=== PATIENT | female | born 1985 | race Hispanic/Latino ===

== ENCOUNTER 2018-03-24 10:31 | Emergency (ER) | payer BC, OTHER ==
--- NOTE | 2018-03-24 12:09 | EKG ---
Test Date: 2018-03-24 Test Time: 10:44:38 Personal Support Worker: STEVEN MEASUREMENT RESULTS: Intervals: Rate: 67 SD: 192 QRSD: 88 QT: 380 QTc: 401 [place]: P: 51 SD: 192 QRS: 42 T: 29 INTERPRETIVE STATEMENTS: Normal sinus rhythm Normal ECG No previous ECG available for comparison Electronically Signed On 03-24-18 12:08:18 CDT by Ronald Romo
--- NOTE | 2018-03-24 13:04 | RAD REPORT ---
EXAM DESCRIPTION: RAD - Chest Pa And Lat (2 Views) - 03/24/2018 12:55 pm CLINICAL HISTORY: Chest pain COMPARISON: None. TECHNIQUE: PA and lateral views of the chest were obtained. FINDINGS: The lungs are clear. Heart size is normal and central vasculature is within normal limit s. No pleural effusion or pneumothorax seen. No acute bony finding noted. No aortic abnormality. IMPRESSION: No acute cardiopulmonary process.
--- NOTE | 2018-03-24 13:22 | ER ---
Nurse's Notes [facility] Name: Sabina Beaulieu Age: 33 yrs Sex: Female : 1985 Arrival Date: 03/24/2018 Time: 10:35 Bed 18 Private MD: None, None Diagnosis: Acute bronchitis Presentation: 03/24 10:39 Presenting complaint: Patient states: PAIN WITH RESP AND COUGH SINCE 0900. Transition aa5 of care: patient was not received from another setting of care. Onset of symptoms was March 24, 2018 at 09:00. Risk Assessment: Do you want to hurt yourself or someone else? Patient reports no desire to harm self or others. Initial Sepsis Screen: Does the patient meet any 2 criteria? No. Patient's initial sepsis screen is negative. Does the patient have a suspected source of infection? No. Patient's initial sepsis screen is negative. Care prior to arrival: None. 10:39 Method Of Arrival: Ambulatory aa5 10:39 Acuity: JUNIOR 3 aa5 Triage Assessment: 10:40 General: Appears in no apparent distress. comfortable, Behavior is cooperative, aa5 appropriate for age, anxious. Pain: Complains of pain in chest. Cardiovascular: Rhythm is sinus rhythm. 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 - Social history:: Smoking status: Patient/guardian denies using tobacco. - Ebola Screening: : Patient negative for fever greater than or equal to 101.5 degrees Fahrenheit, and additional compatible Ebola Virus Disease symptoms Patient denies exposure to infectious person Patient denies travel to an Ebola-affected area in the 21 days before illness onset No symptoms or risks identified at this time. Screenin:47 Abuse screen: Denies threats or abuse. Denies injuries from another. Nutritional ch screening: No deficits noted. Tuberculosis screening: No symptoms or risk factors identified. Fall Risk None identified. Assessment: 11:47 Reassessment: Patient appears in no apparent distress at this time. Patient and/or ch family updated on plan of care and expected duration. Pain level reassessed. Patient is alert, oriented x 3, equal unlabored respirations, skin warm/dry/pink. General: Appears in no apparent distress. comfortable, Behavior is calm, cooperative, appropriate for age. Pain: Complains of pain in back and chest Pain does not radiate. Pain currently is 2 out of 10 on a pain scale. Pain began suddenly. Neuro: Level of Consciousness is awake, alert, obeys commands, Oriented to person, place, time, situation, Welt Edge Rounder are equal bilaterally. Cardiovascular: Heart tones S1 S2 present Capillary refill < 3 seconds in bilateral fingers toes. Respiratory: Reports shortness of breath cough that is pt states it feels like she cannot take a deep breath in. Airway is patent Respiratory effort is even, unlabored, Breath sounds are clear bilaterally. GI: No signs and/or symptoms were reported involving the gastrointestinal system. 13:31 Reassessment: Patient appears in no apparent distress at this time. Patient and/or ch family updated on plan of care and expected duration. Pain level reassessed. Patient is alert, oriented x 3, equal unlabored respirations, skin warm/dry/pink. Patient states feeling better. Patient states symptoms have improved. 13:37 Reassessment: awaiting erp to review results and dx with pt and family. ch 14:23 Reassessment: Patient appears in no apparent distress at this time. Patient and/or ch family updated on plan of care and expected duration. Pain level reassessed. Patient is alert, oriented x 3, equal unlabored respirations, skin warm/dry/pink. Patient states feeling better. Patient states symptoms have improved. Vital Signs: 10:41 BP 128 / 87; Pulse 71; Resp 16; Temp 98.4; Pulse Ox 99% ; Weight 77.11 kg; Height 5 ft. aa5 4 in. (162.56 cm); 13:31 BP 132 / 71; Pulse 65; Resp 12; Temp 98.5; Pulse Ox 99% on R/A; Pain 2/10; ch 14:23 BP 109 / 86; Pulse 88; Resp 14; Temp 98.6; Pulse Ox 99% on R/A; Pain 0/10; ch 10:41 Body Mass Index 29.18 (77.11 kg, 162.56 cm) aa5 ED Course: 10:35 Patient arrived in ED. mr 10:36 None, None is Private Physician. mr 10:40 Triage completed. aa5 10:41 Arm band placed on left wrist. aa5 10:44 Doug Rincon MD is Attending Physician. gs 10:48 Leslie Francois, RN is Primary Nurse. ch 10:48 EKG done, by blending technician. reviewed by Doug Rincon MD. at1 11:30 No apparent distress. Resting quietly. ch 11:30 No provider procedures requiring assistance completed. Initial lab(s) drawn, by wy, sent to lab. 11:36 D-Dimer Sent. aa5 11:47 Patient has correct armband on for positive identification. Bed in low position. Call light in reach. Side rails up X 1. Pulse ox on. NIBP on. 12:48 Patient moved to radiology via wheelchair. jb2 12:53 XRAY Chest Pa And Lat (2 Views) In Process Unspecified. EDMS 12:53 X-ray completed. Patient tolerated procedure well. Patient moved back from radiology. jb2 13:21 None, None is Referral Physician. gs 14:23 Warm blanket given. ch 14:23 Patient did not have IV access during this emergency room visit. Patient maintains SpO2 ch saturation greater than 95% on room air. Administered Medications: 13:50 Drug: Albuterol 2.5 mg Route: Inhalation; ch 14:25 Follow up: Response: No adverse reaction; Marked relief of symptoms ch 13:50 Drug: TORadol 30 mg Route: IM; Site: right gluteus; ch 14:24 Follow up: Response: No adverse reaction; Marked relief of symptoms Outcome: 13:22 Discharge ordered by MD. gs 14:20 Discharge ordered by MD. gs 14:23 Discharged to home ambulatory, with family. ch 14:23 Condition: improved 14:23 Discharge instructions given to patient, family, Instructed on discharge instructions, follow up and referral plans. medication usage, Demonstrated understanding of instructions, follow-up care, medications, Prescriptions given X 2. 14:25 Patient left the ED. Signatures: Dispatcher [employer] EDKY Leslie Francois, ANÍBAL SPANGLER ch Webber Grover Diaz jb2 Milvia Carlos RN RN aa5 Margarita Moreno, plaster form maker EKG Tat1 Doug Rincon MD MD
--- NOTE | 2018-03-24 13:22 | EDPHYS ---
Physician Documentation [facility] Name: Sabina Beaulieu Age: 33 yrs Sex: Female : 1985 Arrival Date: 03/24/2018 Time: 10:35 Bed 18 Private MD: None, None ED Physician Doug Rincon HPI: 03/24 13:18 This 33 yrs old Female presents to ER via Ambulatory with complaints of Chest gs Pain. 13:18 The patient or guardian reports chest pain that is located primarily in the anterior gs chest wall. The pain does not radiate. Associated signs and symptoms: Pertinent positives: cough, Pertinent negatives: abdominal pain, diaphoresis, syncope, vomiting. The chest pain is described as sharp. Duration: The patient or guardian reports multiple episodes, that are intermittent. Modifying factors: the symptoms are aggravated by deep breath. Severity of pain: At its worst the pain was moderate in the emergency department the pain is unchanged. The patient has experienced similar episodes in the past, a few times. 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 - Social history:: Smoking status: Patient/guardian denies using tobacco. - Ebola Screening: : Patient negative for fever greater than or equal to 101.5 degrees Fahrenheit, and additional compatible Ebola Virus Disease symptoms Patient denies exposure to infectious person Patient denies travel to an Ebola-affected area in the 21 days before illness onset No symptoms or risks identified at this time. ROS: 13:18 All other systems are negative. gs Exam: 13:18 Head/Face: Normocephalic, atraumatic. Eyes: Pupils equal round and reactive to light, gs extra-ocular motions intact. Lids and lashes normal. Conjunctiva and sclera are non-icteric and not injected. Cornea within normal limits. Periorbital areas with no swelling, redness, or edema. ENT: Nares patent. No nasal discharge, no septal abnormalities noted. Tympanic membranes are normal and external auditory canals are clear. Oropharynx with no redness, swelling, or masses, exudates, or evidence of obstruction, uvula midline. Mucous membranes moist. Neck: Trachea midline, no thyromegaly or masses palpated, and no cervical lymphadenopathy. Supple, full range of motion without nuchal rigidity, or vertebral point tenderness. No Meningismus. Chest/axilla: Normal chest wall appearance and motion. Nontender with no deformity. No lesions are appreciated. Cardiovascular: Regular rate and rhythm with a normal S1 and S2. No gallops, murmurs, or rubs. Normal PMI, no JVD. No pulse deficits. Abdomen/GI: Soft, non-tender, with normal bowel sounds. No distension or tympany. No guarding or rebound. No evidence of tenderness throughout. Back: No spinal tenderness. No costovertebral tenderness. Full range of motion. Skin: Warm, dry with normal turgor. Normal color with no rashes, no lesions, and no evidence of cellulitis. MS/ Extremity: Pulses equal, no cyanosis. Neurovascular intact. Full, normal range of motion. Neuro: Awake and alert, GCS 15, oriented to person, place, time, and situation. Cranial nerves II-XII grossly intact. Motor strength 5/5 in all extremities. Sensory grossly intact. Cerebellar exam normal. Normal gait. 13:18 Constitutional: The patient appears alert, awake. 13:18 ECG was reviewed by the Attending Physician. 13:18 Respiratory: the patient does not display signs of respiratory distress, Respirations: normal, Breath sounds: rhonchi, that are mild, are scattered. Vital Signs: 10:41 BP 128 / 87; Pulse 71; Resp 16; Temp 98.4; Pulse Ox 99% ; Weight 77.11 kg; Height 5 ft. aa5 4 in. (162.56 cm); 13:31 BP 132 / 71; Pulse 65; Resp 12; Temp 98.5; Pulse Ox 99% on R/A; Pain 2/10; ch 14:23 BP 109 / 86; Pulse 88; Resp 14; Temp 98.6; Pulse Ox 99% on R/A; Pain 0/10; ch 10:41 Body Mass Index 29.18 (77.11 kg, 162.56 cm) aa5 MDM: 11:21 Patient medically screened. 13:18 Differential diagnosis: acute myocardial infarction, pleurisy, pneumonia, bronchitis. Data reviewed: vital signs, nurses notes. 03/24 11:24 Order name: D-Dimer; Complete Time: 12:25 03/24 11:24 Order name: XRAY Chest Pa And Lat (2 Views); Complete Time: 13:18 03/24 11:30 Order name: EKG Electrocardiogram; Complete Time: 11:36 EDMS EC:18 Rate is 67 beats/min. Rhythm is regular. MO interval is normal. QRS interval is normal. gs No Q waves. T waves are Normal. No ST changes noted. Clinical impression: Normal ECG. Interpreted by me. Administered Medications: 13:50 Drug: Albuterol 2.5 mg Route: Inhalation; 14:25 Follow up: Response: No adverse reaction; Marked relief of symptoms 13:50 Drug: TORadol 30 mg Route: IM; Site: right gluteus; 14:24 Follow up: Response: No adverse reaction; Marked relief of symptoms Disposition: 03/24/18 14:20 Discharged to Home. Impression: Acute bronchitis. - Condition is Stable. - Discharge Instructions: Acute Bronchitis, Adult. - Prescriptions for Prednisone 20 mg Oral Tablet - take 1 tablet by ORAL route once daily for 5 days; 5 tablet. Albuterol Sulfate 90 mcg/actuation - inhale 1-2 puff by INHALATION route every 4-6 hours; 1 Inhaler. - Medication Reconciliation Form, Thank You Letter, Antibiotic Education, Prescription Opioid Use form. - Follow up: Private Physician; When: 2 - 3 days; Reason: Re-evaluation by your physician. Signatures: Dispatcher [employer] EDMS Leslie Francois RN RN Milvia Carlos RN RN aa5 Doug Rincon MD MD Corrections: (The following items were deleted from the chart) 13:41 13:22 03/24/2018 13:22 Discharged to Home. Impression: Acute bronchitis. Condition is gs Stable. Forms are Medication Reconciliation Form, Thank You Letter, Antibiotic Education, Prescription Opioid Use. Follow up: None None; When: 2 - 3 days; Reason: Re-evaluation by your physician. 14:25 14:20 03/24/2018 14:20 Discharged to Home. Impression: Acute bronchitis. Condition is ch Stable. Prescriptions for Prednisone 20 mg Oral Tablet - take 1 tablet by ORAL route once daily for 5 days; 5 tablet, Albuterol Sulfate 90 mcg/actuation - inhale 1-2 puff by INHALATION route every 4-6 hours; 1 Inhaler. and Forms are Medication Reconciliation Form, Thank You Letter, Antibiotic Education, Prescription Opioid Use. Follow up: Private Physician; When: 2 - 3 days; Reason: Re-evaluation by your physician. gs
[2018-03-24] MEDS ORDERED: ALBUTEROL 2.5 MG/3 ML NEB SOL ONE (13:50)
[2018-03-24] MEDS ORDERED: KETOROLAC 30 MG/ML INJ ONE (13:51)
[2018-03-24 14:29] VITALS: O2SAT 99
[2018-03-24 14:32] VITALS: BP 109/86; TEMP 98.6
== END 2018-03-24 14:25 | disposition home or self-care (01) ==
LOC: ER 10:31
DX: J20.9 Acute bronchitis, unspecified (principal); Z88.5 Allergy status to narcotic agent
CPT/HCPCS: 36415; 71046; 85379; 93005; 96372; 99285